=== PATIENT | male | born 2000 | race Caucasian/White ===

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

== ENCOUNTER 2025-05-26 02:57 | Emergency (ER) | payer OTHER, SELFPAY ==
--- NOTE | ~2025-05-26 | XR_ITS ---
CLINICAL HISTORY: trauma 3 view right elbow Comparison: None provided Findings: No acute fractures. Normal alignment. No significant loss of joint space, osteophytes, or erosions. No joint effusion. No radiopaque foreign body. IMPRESSION: 1. No acute findings. This document has been electronically signed by: Gregorio Crawford MD, PHD on 05/26/2025 04:54:57
[2025-05-26 02:59] VITALS: BP 125/78; PULSE 70; RESP 16; TEMP 36.6; O2SAT 97; BMI 20.3
--- NOTE | 2025-05-26 03:23 | ED_ITS ---
HPI - Skin/Abscess/Foreign Bdy General Chief complaint: Skin/Abscess/Foreign Body Stated complaint: Injury/rt elbow-WC Time Seen by Provider: 05/26/25 03:12 Source: patient Mode of arrival: ambulatory Limitations: no limitations History of Present Illness ED Provider: Guido HENDRIX HPI narrative: The patient is a 24-year-old male presenting to the ED reporting he was at work stepping down from a ladder when he accidentally struck the posterior aspect of his distal right upper arm on a metal gear box throughout, patient reports he suffered a small laceration to the distal insertion of the triceps and presents to the ED for evaluation. The patient does not know the date of his last tetanus shot. The patient denies distal paresthesias or impaired range of motion. Related Data Allergies Allergy/AdvReac Type Severity Reaction Status Date / Time No Known Allergies (No Known Allergy Unverified 05/26/25 03:05 Allergies*) Review of Systems Review of Systems: Yes all other systems are reviewed and are negative PMFSH Social History Social History Smoked in Last 30 Days: No Use of substances other than those prescribed or required for medical reasons: Yes Substance Use Type: Marijuana Advance Directives: No Advance Directives Information Provided: No Physical Exam Vital Signs: Vital Signs: Last Vital Signs Temp 98.1 F 05/26/25 04:37 Pulse 66 05/26/25 04:37 Resp 18 05/26/25 04:37 BP 128/74 05/26/25 04:37 Pulse Ox 100 05/26/25 04:37 O2 Del Method Room Air 05/26/25 04:37 BMI result Body Mass Index 20.3 CONSTITUTIONAL: The patient appears non-toxic, well nourished and in no acute distress. Vital signs as documented. HEAD: Atraumatic, normocephalic. EYES: EOMs grossly intact, pupils equal, conjunctiva clear, no exudate. ENT: Nares patent, no discharge. Airway patent, no audible stridor, visible mucosa is pink and moist without noted lesions. NECK: trachea is midline, no obvious masses or gross abnormalities. CHEST: Symmetric movement, normal appearance. LUNGS: Non-labored work of breathing. CARDIAC: No evidence of hypoperfusion. ABDOMEN: Nondistended, no obvious injury. : Deferred. EXTREMITIES: 2 cm laceration of the distal aspect of the posterior right upper arm, hemostasis noted. Distal CSM is intact, 2+ radial pulse, no impaired range of motion. Moves all extremities spontaneously without reported pain. No other obvious injury or deformity noted. NEURO: Alert and oriented x3, CN II-XII appear grossly intact. Cerebellar Functioning grossly intact. Speech clear and appropriate. SKIN: Warm, dry, color appropriate. No rashes or lesions noted. Medications Administered Discontinued Medications Generic Name Dose Route Start Last Admin Trade Name Freq PRN Reason Stop Dose Admin Bacitracin 1 appl 05/26/25 04:21 05/26/25 04:25 Bacitracin Oint 0.9 Gm Packet TOPICAL 05/26/25 04:22 1 appl ONCE ONE Administration Diphtheria/Tetanus/Acell Pertussis 0.5 ml 05/26/25 03:48 05/26/25 03:54 Diphth,Pertus(Acell),Tet Adult 0.5 Ml Syringe IM 05/26/25 03:49 0.5 ml .ONCE ONE Administration Lidocaine HCl 5 ml 05/26/25 03:47 05/26/25 03:54 Lidocaine Hcl 1 % Mpf 5 Ml Vial INFILTRATI 05/26/25 03:48 5 ml ONCE ONE Administration Medical Decision Making Medical Decision Making MDM Narrative: 3:48 AM 05/26/2025 (Adelfo HENDRIX): The patient is a 24-year-old male presenting to the ED reporting he was at work stepping down from a ladder when he accidentally struck the posterior aspect of his distal right upper arm on a metal gear box throughout, patient reports he suffered a small laceration to the distal insertion of the triceps and presents to the ED for evaluation. The patient does not know the date of his last tetanus shot. The patient denies distal paresthesias or impaired range of motion. On exam the patient has a 2 cm linear laceration noted to the distal aspect of the posterior right upper arm, with the hemostasis noted. Laceration is linear and minimally gaping. The patient's laceration was repaired with sutures with good approximation. Tetanus was updated. Patient will be discharged with a work note limiting lifting capacity until stitches are removed. Admission/Observation Consideration of admission/observation: Escalation of care including admission/observation considered Independent Interpretation I performed an independent interpretation of an: Plain X-Ray (This provider's interpretation of the right elbow x-ray demonstrates no acute fracture, no posterior fat pad sign.) Radiology Impression Discussion of test interpretation with radiology: I have reviewed the radiologist's reading. Radiologist Impression: 3 view right elbow Comparison: None provided Findings: No acute fractures. Normal alignment. No significant loss of joint space, osteophytes, or erosions. No joint effusion. No radiopaque foreign body. IMPRESSION: 1. No acute findings. This document has been electronically signed by: Gregorio Crawford MD, PHD on 05/26/2025 04:54:57 Procedures Laceration Laceration 1: Site: upper extremity Side (If applicable): right Size (cm): 2 Description: linear and clean Depth: simple, single layer Local Anesthetic: lidocaine 1% Amount of anesthesia used (mL): 2 Pre-repair: wound explored, irrigated extensively and deep structures intact Skin layer closed with: nylon Size (cm): 5-0 Number of sutures: 3 Technique: simple, interrupted Discharge Plan Discharge Clinical Impression: Laceration of right elbow without complication Qualifiers: Encounter type: initial encounter Qualified Code(s): S51.011A - Laceration without foreign body of right elbow, initial encounter Patient Disposition: Home, Self-Care Instructions: Laceration (ED) Additional Instructions: Thank you for choosing [facility] Emergency Department for your care today. Your laceration today appears noncomplicated, there was no evidence of an underlying fracture of your elbow. The laceration was repaired with nonabsorbable sutures which will need to be removed in 7-10 days. Please return to the emergency department or follow-up with your primary care provider for removal of sutures. Please apply bacitracin and a clean dry dressing to the laceration twice daily f or the first 2-3 days. Then please keep the area clean and dry, but uncovered and exposed to the air to allow the laceration to heal. While it is perfectly acceptable to allow water to run over the sutures while showering, please do not swim, or submerge the laceration in standing water until the sutures are removed. You should take alternating (staggered) doses of ibuprofen 600mg and Tylenol 1000mg every 4 hours as needed for any additional pain. If you do not have a primary care physician, please call the [facility] at [phone] to establish a new primary care physician. While waiting to establish your new primary care physician, you can call our [facility] at [phone] for non-emergency needs. Please return to the emergency department if you develop any uncontrollable bleeding, re-opening of your wound, redness advancing >1-2 cm away from your wound, or white milky discharge from your wound. Please also return if you experience any other new or worsening symptoms or concerns. Stand Alone Forms: Work/School Release Interventions: ED Discharge Assessment Last Done: 05/26/25 04:37 Discharge Date/Time: 05/26/25 04:38 Print Language: Tunisian
[2025-05-26] MEDS: Diphth,Pertus(ACell),Tet Adult 0.5 ML SYRINGE IM (03:54)
[2025-05-26] MEDS: Lidocaine HCl 1 % MPF 5 ML VIAL INFILTRATI (03:54)
[2025-05-26 04:28] VITALS: BP 128/74; PULSE 66; RESP 18; TEMP 36.7; O2SAT 100
[2025-05-26 04:37] VITALS: BP 128/74; PULSE 66; RESP 18; TEMP 36.7; O2SAT 100
== END 2025-05-26 04:38 | disposition home or self-care (01) ==
PROVIDERS: Emergency Provider Emergency Medicine
DX: S51.011A Laceration without foreign body of right elbow, initial encounter (principal); M25.521 Pain in right elbow; W11.XXXA Fall on and from ladder, initial encounter; Y93.9 Activity, unspecified; Y92.9 Unspecified place or not applicable; Y99.0 Civilian activity done for income or pay; Z23 Encounter for immunization
CPT/HCPCS: 12001; 73080; 90471; 90715; 99284; J2003

== ENCOUNTER → 2025-05-26 03:33 | Outpatient (BNV) | payer OTHER, SELFPAY | PROVIDERS: Emergency Provider Emergency Medicine; Visit Provider General Practice | DX: Z04.3 Encounter for examination and observation following other accident (principal) | CPT/HCPCS: 73080 ==

== ENCOUNTER → 2025-06-03 14:07 | Outpatient (BNVA) | payer OTHER, SELFPAY | PROVIDERS: Visit Provider Physician Assistant Medical | DX: S51.011A Laceration without foreign body of right elbow, initial encounter (principal); W22.09XA Striking against other stationary object, initial encounter; Z02.79 Encounter for issue of other medical certificate | CPT/HCPCS: 99202; 99212 ==